=== PATIENT | male | born 1980 | race Two or more races ===

== ENCOUNTER 2017-08-11 17:12 | Emergency (ER) | payer BC, OTHER ==
[2017-08-11 17:17] VITALS: BP 117/63; PULSE 70; TEMP 98.6; BMI 29.0
[2017-08-11] MEDS ORDERED: KETOROLAC TROMETHAMINE 60 MG/2 ML VIAL IM ONE (18:42)
--- NOTE | 2017-08-11 18:43 | PDOC ---
History of Present Illness - General Chief Complaint: Back Pain Stated Complaint: BACK PAIN Time Seen by Provider: 08/11/17 17:49 History Source: Patient Exam Limitations: No Limitations - History of Present Illness Initial Comments: 08/11/17 19:09 My chief complaint: Left-sided lower back pain History of present illness: Patient is a 37-year-old male with a history of anemia and asthma and intermittent lower back pain here today complaining of having left-sided lower back pain since 07/26/2017. Patient reports that he was at work left ankle when he felt pain to his left lower back. Patient reports that pain has gotten progressively worse and by 08/09/2017 he found it difficult to work and was unable to remain on shift due to left-sided lower back pain. Patient reports that is been difficult for him to stand up correctly or to sit down. Patient denies any incontinency or any saddle anesthesia. Patient reports having intermittent tingling of his lower extremities at times. Patient has never been followed by an orthopedist. Patient reports it difficult for him to walk due to his inability to straighten off and it took him 10 minutes to walk from the parking lot into the emergency room today. Patient is driving and does not have anyone to pick him up will not be able to give him any Valium here to relax the muscle. Occurred: reports: other (07/26/17 getting worse) Severity: reports: severe Pain Location: reports: back (left sided lower back ) Method of Injury: Yes: other (lifting at work on 07/26/17 ) Modifying Factors: improves with: None Loss of Consciousness: no loss of consciousness Associated Symptoms (Fall): trouble walking, other Past History - Past Medical History Allergies/Adverse Reactions: Allergies Allergy/AdvReac Type Severity Reaction Status Date / Time No Known Allergies Allergy Verified 08/11/17 17:13 Home Medications: Ambulatory Orders Diazepam [Valium] 5 mg PO Q8H PRN #3 tablet MDD 15 08/11/17 Naproxen [Naprosyn -] 500 mg PO BID PRN #14 tablet 08/11/17 Anemia: Yes Asthma: Yes GI Disorders: Yes (PER PT "UNDIAGNOSED") - Surgical History Abdominal Surgery: Yes (ing hernia x4) - Suicide/Smoking/Psychosocial Hx Smoking Status: No Smoking History: Never smoked Number of Cigarettes Smoked Daily: 0 Information on smoking cessation initiated: No Hx Alcohol Use: No Drug/Substance Use Hx: No Review of Systems - Review of Systems Able to Perform ROS?: Yes Constitutional: No: Symptoms Reported HEENTM: No: Symptoms Reported Respiratory: No: Symptoms reported Cardiac (ROS): No: Symptoms Reported ABD/GI: No: Symptoms Reported : No: Symptoms Reported Musculoskeletal: Yes: Back Pain (left sided lumbar/sacral back pain ) Integumentary: No: Symptoms Reported Neurological: No: Symptoms reported *Physical Exam - Vital Signs Last Vital Signs Temp Pulse Resp BP Pulse Ox 98.6 F 70 18 117/63 100 08/11/17 17:13 08/11/17 17:13 08/11/17 17:13 08/11/17 17:13 08/11/17 17:13 - Physical Exam General Appearance: Yes: Appropriately Dressed Respiratory/Chest: positive: Lungs Clear, Normal Breath Sounds. negative: Chest Tender, Respiratory Distress Cardiovascular: positive: Regular Rhythm, Regular Rate, S1, S2 Vascular Pulses: Dorsalis-Pedis (R): 4+, Doralis-Pedis (L): 4+ Musculoskeletal: positive: Normal Inspection, Decreased Range of Motion (at waist with flexion), Muscle Spasm (left side lumbar sacral). negative: CVA Tenderness, CVA Tenderness (R), CVA Tenderness (L), Vertebral Tenderness Extremity: positive: Normal Capillary Refill, Normal Inspection, Normal Range of Motion Integumentary: positive: Normal Color Neurologic: positive: Alert, Normal Response, Motor Strength 5/5 (b/l legs), Respond to painful stimul (b/l legs), Responsive, Other (negative SLR b/l ). negative: Numbness, Sensory Deficit (legs b/l ) Deep Tendon Reflexes: Knee (L): 4+, Knee (R): 4+ Medical Decision Making - Medical Decision Making 08/11/17 19:12 Patient is a 37-year-old male with a history of anemia and asthma and intermittent lower back pain here today complaining of having left-sided lower back pain since 07/26/2017. Patient reports that he was at work left ankle when he felt pain to his left lower back. Patient reports that pain has gotten progressively worse and by 08/09/2017 he found it difficult to work and was unable to remain on shift due to left-sided lower back pain. Patient reports that is been difficult for him to stand up correctly or to sit down. Patient denies any incontinency or any saddle anesthesia. Patient reports having intermittent tingling of his lower extremities at times. Patient has never been followed by an orthopedist. Patient reports it difficult for him to walk due to his inability to straighten off and it took him 10 minutes to walk from the parking lot into the emergency room today. Patient is driving and does not have anyone to pick him up will not be able to give him any Valium here to relax the muscle. 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 The information displayed on this report is compiled from pharmacy submissions to the Department, and accurately reflects the information as submitted by the pharmacies. This report was requested by: Peg Quinn | Reference #: [id number] 08/11/17 19:23 08/11/17 19:27 08/11/17 19:44 *DC/Admit/Observation/Transfer Diagnosis at time of Disposition: Back muscle spasm Lumbar back pain Qualifiers: Chronicity: acute Back pain laterality: left Sciatica presence: without sciatica Qualified Code(s): M54.5 - Low back pain - Discharge Dispostion Disposition: HOME Condition at time of disposition: Stable - Prescriptions Prescriptions: Naproxen [Naprosyn -] 500 mg PO BID PRN #14 tablet PRN Reason: Pain Diazepam [Valium] 5 mg PO Q8H PRN #3 tablet MDD 15 PRN Reason: Muscle Spasms - Referrals Referrals: Venancio Finnegan [Primary Care Provider] - Konrad Theodore MD [Staff Physician] - John Lagunas MD [Staff Physician] - - Patient Instructions Additional Instructions: Avoid any strenuous activities, lifting or exercise until cleared by orthopedist to resume Follow-up with orthopedist as soon as possible for further evaluation Avoid any activities requiring due to be alert when taking Valium especially driving or operating any machinery Return to emergency room if symptoms worsen any numbness of groin or loss of control of your ability to hold urine or bowel movements Patient voiced understanding of discharge instructions and all questions were answered Thank you for choosing [facility] for your medical needs today - Post Discharge Activity Work/School Note: Back to Work
[2017-08-11] MEDS ORDERED: KETOROLAC TROMETHAMINE 60 MG/2 ML VIAL ONE (18:44)
== END 2017-08-11 19:48 | disposition home or self-care (01) ==
LOC: JERFT 17:12
PROC: 3E0233Z Introduction of Anti-inflammatory into Muscle, Percutaneous Approach (ICD-10-PCS; principal; 2017-08-11)
DX: M62.830 Muscle spasm of back (principal); M54.5 Low back pain; X50.0XXA Overexertion from strenuous movement or load, initial encounter; Y93.89 Activity, other specified; Y92.834 Zoological garden (Zoo) as the place of occurrence of the external cause; Y99.0 Civilian activity done for income or pay
CPT/HCPCS: 72100-TC; 99281-25